=== PATIENT | male | born 1980 | race Caucasian/White ===

== ENCOUNTER 2016-12-01 02:24 | Emergency (ER) | payer BC ==
[~2016-12-01] VITALS: Ht 180.3 cm; Wt 63.6 kg
[~2016-12-01 02:24] MED LIST: ACET-2723 PO; MECL25TA31 PO; TRAM50TA4 PO
[2016-12-01 02:25] VITALS: TEMP 98.2; Ht 180.3 cm; Wt 63.6 kg
--- OUTSIDE RECORDS SUMMARY | 2016-12-01 02:28 | XMS REPORT | Continuity of Care Document ---
Author Author [facility] Organization [facility] Address Unknown Phone Unavailable Allergies Active Description Code Type Severity Reaction Onset Reported/Identified Relationship to Patient Clinical Status Yes No Known Allergies NKMA N/A N/A 2014 Medications Problems Procedures Results Encounters ACCT No. Visit Date/Time Discharge Status Pt. Type Provider Facility Loc./Unit Complaint [id number] 2014 17:05:00 2013 23:59:00 DIS Outpatient Nabil Mansfield [facility] New IC SORE THROAT
--- NOTE | 2016-12-01 02:37 | ERPDOC ---
Departure Disposition Decision Date: Dec 01, 2016 Disposition Decision Time: 04:35 Disposition: 01 DISCHARGED HOME, SELF-CARE Impression Impression Impression: Primary Impression: Viral gastroenteritis Additional Impressions: Dehydration Muscle cramps Severity: Severe Condition: Improved Seen By: Physician only Referrals: STEFANIE REDMAN II, MD (Family) Patient Instructions: Dehydration (ED), Gastroenteritis (ED) Problems/Meds/Labs Reviewed?: Yes Medications reviewed and manag: Yes Additional Instructions: Compazine 10 mg one tablet every 6-8 hours 3 days then as needed for nausea/ stomach cramps Drink at least 2 quarts of fluid daily May use ibuprofen or Aleve, and/or Tylenol as needed for cramps and pain in the muscles Follow up care ordered?: Yes Mental Status: Alert Scripts Prochlorperazine Maleate (Compazine) 10 Mg Tablet 10 MG PO QID, #30 TAB 0 Refills Prov: CAMILA UGARTE MD 12/01/16 HPI - Abdominal Pain General Stated Complaint: POSS FOOD POISONING/LEGS CRAMPING Time Seen by Provider: 02:30 Source: patient, family History/Exam Limitations: clinical condition HPI - Abdominal Pain Initial Comments Patient has had several hours of nausea vomiting and diarrhea, has now become really agitated with severe muscle cramps all over his hands feet arms and legs. Patient has not been taking any medications recently, but states in the past he has used tramadol. Occurred At: home Onset: Rapid Duration: 4-6 hrs Quality: cramping Location: epigastric Radiation: no radiation Associated Symptoms: nausea/vomiting, DENIES: back pain, chest pain, diaphoresis, fatigue, fever/chills, headache, heartburn, rash, shortness of breath, swelling/mass in abdomen, syncope, weakness Hx of Similar Symptoms: No Allergies: Coded Allergies: No Known Drug Allergies (Verified Allergy, Unknown, 12/01/16) red dye (Unverified Allergy, Unknown, 12/01/16) Past History Past Medical History GI: other Male: kidney stones Musculoskeletal: back pain Surgical History General: hernia Family History Family PMH: FOUND: other Social History Smoking Status: Current every day smoker Does patient use chewing tobac: No Second Hand Exposure: No Substance Use Type: does not use Alcohol Intake: none Sexuality: female partner Record Review Pertinent history updated: Yes Review of Systems Constitutional Constitutional: DENIES: appetite decrease, appetite increase, chills, dizziness , fever, weakness ENMT Ears: DENIES: pain Hearing: DENIES: hearing loss, tinnitus Balance: DENIES: vertigo Mouth/Throat: DENIES: change in swallowing, change in voice, hoarsness, painful swallowing, sore throat Cardiovascular Cardiac: DENIES: chest pain, dyspnea on exertion Rhythm/Rate: DENIES: irregular beat, palpitations, tachycardia Vascular: DENIES: pedal edema Pulmonary Respiratory: DENIES: cough, dyspnea, pleuritic chest pain GI Upper Abdomen: nausea, pain, vomiting, DENIES: dysphagia, heartburn/indigestion Lower Abdomen: diarrhea, DENIES: blood in stool, constipation, pain General: DENIES: burning, dysuria, frequency, pain, urgency Musculoskeletal General: cramps, pain, spasm, tenderness, DENIES: atrophy of muscles, joint pain, joint swelling Integumentary Skin: DENIES: rash, sores Neurological General: DENIES: headache, numbness, tingling, vertigo, weakness Physical Exam General General Nourishment: well nourished, well developed, appears stated age, thin Distress Description Patient is nearly hysterical screaming and writhing due to muscle spasms General Body Habitus: disheveled Vitals and Pain First Documented Vital Signs Date Time Temp Pulse Resp B/P Pulse Ox O2 Delivery O2 Flow Rate FiO2 12/01/16 02:25 98.2 138 22 115/81 98 Room Air Weight: Kilograms: Height (feet): 5 Height (inches): 11 Triage Pain Scale: RN VS reviewed by Provider: Yes Normal Exams: Head: Normocephalic w/o trauma Eyes: Pupils are PERRLA w/ EOMI, No scleral icterus, irritation, or foreign bodies noted ENMT: No facial trauma, nasal exudates, pharyngeal erythema, or exudates are noted Neck: Full range of motion, without adenopathy, JVD, bruits or thyromegaly Chest/Resp: Clear all [place], with good airflow, and symmetry bilaterally CV: Regular rate and rhythm, without murmur or gallop, Pulses 2+ all extremities, capillary refill, <2 seconds all ext., no pedal edema noted Lymphatic: No lymphadenopathy, or lymphedema noted Integumentary: No rashes, hives, or bruising noted, hair and nails, without abnormality Neurologic: Patient is alert, and oriented, cranial nerves, motor/sensory/ cerebellar, exams w/o gross deficits, to observation Psychiatric: Patient exhibits, appropriate attention, emotion and affect Abdomen (brief) Abdominal Brief: FOUND: bowel normo active x4, soft, tender (epigastric tenderness only no guarding, no rebound), NOT FOUND: distended, hepatosplenomegaly, pulsatile mass Musculoskeletal (brief) Musculoskeletal Brief: FOUND: spasm, tenderness, NOT FOUND: deformity, loss of motion Comments Diffuse muscle spasms throughout the body, especially in the extremities Progress Results/Orders Orders Procedure Category Date Status Time Iv Lock (Ed Only) EDM 12/01/16 Transmitted 02:32 Cbc W/Auto LAB 12/01/16 Complete Diff-Reflex Manual Cmp - Comprehensive LAB 12/01/16 Complete Metabolic Fentanyl (Fentanyl) PHA 12/01/16 Complete 02:45 Prochlorperazine PHA 12/01/16 Complete (Compazine) 02:45 Ketorolac (Toradol) PHA 12/01/16 Complete 02:45 Normal Saline (Normal PHA 12/01/16 Complete Saline Iv) 02:45 Lab Results Laboratory Tests Test 12/01/16 02:54 White Blood Count 15.3T/MM3 Red Blood Count 6.21M/MM3 Hemoglobin 18.4GM/DL Hematocrit 53.2% Mean Corpuscular Volume 85.7UM3 Mean Corpuscular Hemoglobin 29.6UUG Mean Corpuscular Hemoglobin Concent 34.6GM/DL RDW Standard Deviation 40.0FL Platelet Count 334T/MM3 Mean Platelet Volume 9.7UM3 Immature Granulocyte % (Auto) % Neutrophils (%) (Auto) % Lymphocytes (%) (Auto) % Monocytes (%) (Auto) % Eosinophils (%) (Auto) % Basophils (%) (Auto) % Absolute Immature Granulocyte (auto T/MM3 Absolute Neutrophils (auto) T/MM3 Absolute Lymphocytes (auto) T/MM3 Absolute Monocytes (auto) T/MM3 Absolute Eosinophils (auto) T/MM3 Absolute Basophils (auto) T/MM3 Neutrophils % (Manual) 72.0% Band Neutrophils % 9.0% Lymphocytes % (Manual) 12.0% Monocytes % (Manual) 7.0% Absolute Neutrophils (Manual) 11.0T/MM3 Band Neutrophils # 1.4T/MM3 Lymphocytes # (Manual) 1.8T/MM3 Monocytes # (Manual) 1.1T/MM3 Red Cell Morphology Comment Normal Turbidity < 20 Sodium Level 145MEQ/L Potassium Level 4.4MEQ/L Chloride Level 101MEQ/L Carbon Dioxide Level 22MEQ/L Anion Gap 22MEQ/L Blood Urea Nitrogen 14.0MG/DL Creatinine 1.5MG/DL Glomerular Filtration Rate Calc 53 BUN/Creatinine Ratio 9RATIO Glucose Level 128MG/DL Calculated Osmolality 282MOSM/KG Calcium Level 11.4MG/DL Total Bilirubin 1.20MG/DL Icterus Index < 2 Aspartate Amino Transf (AST/SGOT) 32U/L Alanine Aminotransferase (ALT/SGPT) 31U/L Alkaline Phosphatase 58U/L Total Protein 9.4G/DL Albumin 5.6G/DL Globulin 3.8G/DL Albumin/Globulin Ratio 1.5RATIO Chemistry Specimen Hemolysis < 15 Medications Current ED Medications Fentanyl (Fentanyl) 50 mcg O ONCE IV Last administered on 12/01/16 02:54; Start 12/01/16 at 02:45; Stop 12/01/16 at 02:46; Status DC Prochlorperazine Edisylate (Compazine) 10 mg O ONCE IV Last administered on 02:49; Start 12/01/16 at 02:45; Stop 12/01/16 at 02:46; Status DC Ketorolac Tromethamine 30 mg 30 mg O ONCE IV Last administered on 12/01/16 02 :55; Start 12/01/16 at 02:45; Stop 12/01/16 at 02:46; Status DC Sodium Chloride (Normal Saline IV) 1,000 ml @ 0 mls/hr Q0M ONCE IV Last administered on 12/01/16 02:48; Start 12/01/16 at 02:45; Stop 12/01/16 at 02:46 ; Status DC Progress Progress Patient given fentanyl 50 g IV, 1 L normal saline IV fluid bolus, Compazine and Toradol IV - to relief CBC - moderate white blood cell elevation, minimal left shift, consistent with viral syndrome and significant inflammatory response CMP/L - moderate dehydration with mild elevated sodium Syndrome appears to be most consistent with viral gastroenteritis, dehydration, and muscle spasms. Tonight is given prescription and sample pack of Compazine 10 mg to use 3-4 times daily for the next 3 days then as needed. Patient is also encouraged to drink 2 quarts of fluid daily, use anti-inflammatory or Tylenol medications as needed for aches and pains. CAMILA UGARTE MD Dec 01, 2016 02:37
[2016-12-01] MEDS ORDERED: FENTANYL 100mcg/2ml INJECTION IV ONE (02:45)
[2016-12-01] MEDS ORDERED: NORMAL SALINE 1,000 ML IV ONE (02:45)
[2016-12-01] MEDS ORDERED: PROCHLORPERAZINE 10mg/2ml INJECTION IV ONE (02:45)
[2016-12-01] MEDS ORDERED: KETOROLAC 30mg/ml INJECTION IV ONE (02:45)
--- NOTE | 2016-12-01 02:45 | NUR ---
IVL IV LOCK STARTED ON FIRST ATTEMPT.
--- NOTE | 2016-12-01 02:56 | NUR ---
MEDS IV FLUID BOLUS STARTED AND COMPAZINE GIVEN FOR NAUSEA. FENTANYL AND TORADOL GIVEN IV FOR PAIN. PT. RESTLESS THROUGHOUT GIVING THE MEDICATION AND ASKS ME TO HURRY AND HELP HIM. C/O PAIN IN HIS HAND AND IS HAVING CARPAL PEDAL SPASMS OF HAND FROM HYPERVENTILATING. WHEN I TRY TO GET PT. TO SLOW HIS BREATHING HE SAYS HE CAN'T DO IT.
[2016-12-01 03:00] LABS: HCT - HEMATOCRIT 53.2 % (41-53); HGB - HEMOGLOBIN 18.4 GM/DL (13.5-17.5); MEAN CORPUSCULAR HGB 29.6 UUG (26-34); MEAN CORPUSCULAR HGB CONC(MCHC 34.6 GM/DL (31-37); MEAN CORPUSCULAR VOLUME 85.7 UM3 (80-100); MEAN PLATELET VOLUME 9.7 UM3 (9.4-12.4); RED BLOOD COUNT 6.21 M/MM3 (4.50-5.90); WBC - WHITE BLOOD COUNT 15.3 T/MM3 (4.5-11.0)
[2016-12-01 03:08] LABS: ALBUMIN 5.6 G/DL (3.5-5.0); ALBUMIN/GLOBULIN RATIO 1.5 RATIO (1.1-2.2); ALKALINE PHOSPHATASE 58 U/L (38-126); ALT (SGPT) 31 U/L (21-72); ANION GAP 22 MEQ/L (5-15); AST (SGOT) 32 U/L (17-59); BUN/CREATININE RATIO 9 RATIO (6-26); CALCIUM 11.4 MG/DL (8.4-10.2); CHLORIDE 101 MEQ/L (98-107); CO2 - CARBON DIOXIDE 22 MEQ/L (22-30); CREATININE 1.5 MG/DL (0.8-1.5); GLOMERULAR FILTRATION RATE 53; GLUCOSE 128 MG/DL (75-110); POTASSIUM 4.4 MEQ/L (3.6-5); SODIUM 145 MEQ/L (134-144); TOTAL PROTEIN 9.4 G/DL (6.3-8.2)
--- NOTE | 2016-12-01 03:15 | NUR ---
STATUS PT. SLEEPING.
[2016-12-01 03:17] LABS: BAND NEUTROPHILS # 1.4 T/MM3; LYMPHOCYTES # (MANUAL) 1.8 T/MM3 (1-4.8); MONOCYTES # (MANUAL) 1.1 T/MM3 (0-0.8); TOTAL CELLS COUNTED 100 %
--- NOTE | 2016-12-01 04:00 | NUR ---
STATUS IV FLUIDS INFUSED. PT. CONTINUES TO SLEEP.
[2016-12-01] MEDS ORDERED: PROC-14 PO (04:36)
[2016-12-01] MEDS ORDERED: PROCHLORPERAZINE 10MG (PrePack) SENT HOME ONE (04:45)
--- NOTE | 2016-12-01 04:55 | NUR ---
DISMISSAL NOTE DISMISSAL INSTRUCTIONS GIVEN TO PT. AND NO FURTHER QUESTIONS. PT. A LOT CALMER AND RATES HIS PAIN A 2-3. NO VOMITING OR DIARRHEA WHILE IN ED. PT. LEFT ED AMBULATORY WITH MOTHER.
--- OUTSIDE RECORDS SUMMARY | 2016-12-01 05:04 | XMS REPORT | Continuity of Care Document ---
Author Author [facility] Organization [facility] Address Unknown Phone Unavailable Allergies Active Description Code Type Severity Reaction Onset Reported/Identified Relationship to Patient Clinical Status Yes No Known Allergies NKMA N/A N/A 2014 Medications Problems Procedures Results Encounters ACCT No. Visit Date/Time Discharge Status Pt. Type Provider Facility Loc./Unit Complaint [id number] 2014 17:05:00 2013 23:59:00 DIS Outpatient Nabil Mansfield [facility] New IC SORE THROAT
[2016-12-01 06:39] VITALS: BP 114/70; PULSE 113; RESP 20; O2SAT 96
== END 2016-12-01 04:55 | disposition home or self-care (01) ==
LOC: ED 02:24
DX: A08.4 Viral intestinal infection, unspecified (principal); E86.0 Dehydration; R25.2 Cramp and spasm
CPT/HCPCS: 80053; 85025; 96361; 96374; 96375; 99284; J0780; J1885; J3010; J7030